=== PATIENT | male | born 1945 | race Native Hawaiian/Other Pacific Islander ===

== ENCOUNTER 2021-04-16 13:54 | Emergency (ER) | payer OTHER ==
[~2021-04-16] VITALS: Ht 177.8 cm; Wt 97.5 kg
[2021-04-16 13:58] VITALS: BP 134/81; TEMP 97.8
== END 2021-04-16 14:41 | disposition home or self-care (01) ==
LOC: ED 13:54
PROC: 09QK0ZZ Repair Nasal Mucosa and Soft Tissue, Open Approach (ICD-10-PCS; principal; 2021-04-16)
DX: S01.21XA Laceration without foreign body of nose, initial encounter (principal); W01.198A Fall on same level from slipping, tripping and stumbling with subsequent striking against other object, initial encounter; Y92.89 Other specified places as the place of occurrence of the external cause
CPT/HCPCS: 90715; 96372; 99282